=== PATIENT | female | born 1995 | race Caucasian/White ===

== ENCOUNTER 2021-04-08 05:44 | Inpatient (IN) ==
[2021-04-08] MEDS ORDERED: FAMOTIDINE 20 MG/2 ML VIAL IV PRN (05:53)
[2021-04-08] MEDS ORDERED: ceFAZolin 3,000 MG in SYRINGE 1 EACH IV PRN (05:53)
[2021-04-08] MEDS ORDERED: CITRIC ACID/SODIUM CITRATE 30 ML UDCUP PO PRN (05:53)
[2021-04-08] MEDS ORDERED: OXYTOCIN/LR 30 UNIT/1,000 ML BAG IV PRN (05:56)
[2021-04-08] MEDS ORDERED: OXYTOCIN 10 UNIT/ML VIAL IM PRN (05:57)
[2021-04-08] MEDS: LACTATED RINGERS 1,000 ML IV SCH ×2 (06:25→08:29)
[2021-04-08 06:38] LABS: Basophils # 0.1 10*3/uL (0.0-0.2); Basophils % 0.4 % (0.0-0.8); Eosinophils # 0.1 10*3/uL (0.0-0.87); Eosinophils % 1.1 % (0.00-10.9); Hematocrit 39.2 VOL% (35.7-47.0); Hemoglobin 12.8 GM/DL (12.0-16.0); Immature Granulocytes % 0.5 %; Immature Granulocytes Absolute 0.07 #; Lymphocytes # 1.9 10*3/uL (1.4-4.0); Lymphocytes % 14.3 % (21.3-54.2); Mean Corpuscular HGB Conc 32.7 GM/DL (32-36); Mean Corpuscular Volume 88.9 FL (87-102); Mean Platelet Volume 9.9 FL (9.6-12.0); Neutrophils % 78.7 % (38.7-73.9); Platelet Count 366 T/CUMM (130-400); Red Blood Count 4.41 MC/CUMM (3.8-5.5); Red Cell Distribution Width 13.9 % (9.3-17.3)
[2021-04-08 07:03] LABS: Alanine Aminotransferase 14 U/L (13-56); Albumin 2.5 G/DL (3.4-5.0); Alkaline Phosphatase 94 U/L (45-117); Aspartate Amino Transferase 12 U/L (0-37); Bilirubin,Total < 0.39 MG/DL (0.20-1.00); Blood Urea Nitrogen 6 MG/DL (7-18); Calcium 9.1 MG/DL (8.5-10.1); Carbon Dioxide 19 MMOL/L (21-32); Estimated Glom Filtration Rate 191 ML/MIN; Glucose 105 MG/DL (74-106); Osmolality,Calculated 274.5 MOS/KG (273-304); Potassium 3.7 MMOL/L (3.5-5.1); Sodium 139 MMOL/L (136-145); Total Protein 6.6 G/DL (6.4-8.2)
[2021-04-08] MEDS ORDERED: miSOPROStoL 200 MCG TABLET ONE (07:08)
[2021-04-08] MEDS ORDERED: METHYLERGONOVINE 0.2 MG/1 ML AMP ONE (07:08)
[2021-04-08] MEDS ORDERED: ONDANSETRON 4 MG/2 ML VIAL ONE (08:39)
[2021-04-08] MEDS ORDERED: BUPIVACAINE SPINAL 0.75% 2 ML AMP SPINAL ONE (08:39)
[2021-04-08] MEDS ORDERED: DEXAMETHASONE 4 MG/1 ML VIAL ONE (09:02)
[2021-04-08] MEDS ORDERED: KETOROLAC 30 MG/1 ML VIAL ONE (09:02)
[2021-04-08] MEDS ORDERED: ACETAMINOPHEN INJ 1,000 MG/100 ML VIAL IV ONE (09:02)
[2021-04-08] MEDS ORDERED: PHENYLEPHRINE 1 MG/10 ML SYRINGE IV ONE ×3 (09:02→09:48)
[2021-04-08] MEDS ORDERED: fentaNYL 100 MCG/2 ML VIAL ONE (09:23)
[2021-04-08 09:50] LABS: Cord Venous Blood HCO3 20.2 MMOL/L; Cord Venous Blood PCO2 62.3 MMHG; Cord Venous Blood PO2 < 17
[2021-04-08 09:53] LABS: Cord Arterial Blood HCO3 19.8 MMOL/L
[2021-04-08 10:08] LABS: Bilirubin,Urine Negative (Negative); Blood, Urine Negative (Negative); Glucose,Urine (UA) Negative (Negative); Ketones,Urine Negative (Negative); Mucus,Urine Moderate /LPF (Occasional); Nitrite,Urine Negative (Negative); Protein,Urine Negative; RBC,Urine 1 /HPF (0-4); Squamous Epithelial Cell,Urine Occasional /HPF (0-10); Urine Appearance CLEAR (Clear); Urine Color Yellow (Yellow); Urine Specific Gravity 1.025 (1.001-1.035); Urine Urobilinogen < 2.0 EU/DL (0.2-1.0)
[2021-04-08] MEDS ORDERED: OXYTOCIN/LR 20 UNIT/1,000 ML BAG IV ONE ×3 (11:38→11:39)
[2021-04-08] MEDS ORDERED: RHO(D) IMMUNE GLOBULIN 300 MCG SYRINGE IM ONE (11:39)
[2021-04-08] MEDS ORDERED: ACETAMINOPHEN 325 MG TABLET PO PRN (11:39)
[2021-04-08] MEDS ORDERED: SIMETHICONE CHEW 80 MG TABLET PO PRN (11:39)
[2021-04-08] MEDS ORDERED: IBUPROFEN 800 MG TABLET PO PRN (11:39)
[2021-04-08] MEDS ORDERED: ONDANSETRON 4 MG/2 ML VIAL IV PRN (11:39)
[2021-04-08] MEDS ORDERED: LACTATED RINGERS 1,000 ML IV SCH (12:00)
[2021-04-08] MEDS ORDERED: ACETAMINOPHEN 500 MG TABLET PO SCH (15:00)
[2021-04-08] MEDS ORDERED: KETOROLAC 30 MG/1 ML VIAL IV SCH (15:00)
[2021-04-08] MEDS: KETOROLAC 30 MG/1 ML VIAL IV SCH ×2 (16:03→21:17)
[2021-04-08] MEDS: ACETAMINOPHEN 500 MG TABLET PO SCH ×2 (16:04→21:10)
[2021-04-08] MEDS: ceFAZolin 2,000 MG/50 ML DUPLEX IV SCH (16:06)
[2021-04-08 17:28] LABS: Basophils % 0.2 % (0.0-0.8); Eosinophils % 0.1 % (0.00-10.9); Hematocrit 34.1 VOL% (35.7-47.0); Hemoglobin 11.3 GM/DL (12.0-16.0); Immature Granulocytes % 0.5 %; Immature Granulocytes Absolute 0.08 #; Lymphocytes % 6.1 % (21.3-54.2); Mean Corpuscular HGB Conc 33.1 GM/DL (32-36); Mean Platelet Volume 9.9 FL (9.6-12.0); Monocytes % 3.8 % (1.7-12.7); Neutrophils % 89.3 % (38.7-73.9); Platelet Count 323 T/CUMM (130-400); Red Blood Count 3.83 MC/CUMM (3.8-5.5); Red Cell Distribution Width 13.8 % (9.3-17.3); White Blood Count 16.9 T/CUMM (4-12)
[2021-04-08] MEDS: DOCUSATE SODIUM 100 MG CAPSULE PO SCH (21:09)
[2021-04-09] MEDS: ceFAZolin 2,000 MG/50 ML DUPLEX IV SCH (00:35)
[2021-04-09] MEDS: KETOROLAC 30 MG/1 ML VIAL IV SCH (03:51)
[2021-04-09] MEDS: ACETAMINOPHEN 500 MG TABLET PO SCH (06:00)
[2021-04-09 06:28] LABS: Basophils % 0.3 % (0.0-0.8); Eosinophils # 0.1 10*3/uL (0.0-0.87); Eosinophils % 0.9 % (0.00-10.9); Hematocrit 33.2 VOL% (35.7-47.0); Hemoglobin 10.5 GM/DL (12.0-16.0); Immature Granulocytes % 0.4 %; Immature Granulocytes Absolute 0.04 #; Lymphocytes % 19.7 % (21.3-54.2); Mean Corpuscular HGB Conc 31.6 GM/DL (32-36); Mean Corpuscular Volume 91.5 FL (87-102); Mean Platelet Volume 9.8 FL (9.6-12.0); Monocytes % 7.1 % (1.7-12.7); Neutrophils % 71.6 % (38.7-73.9); Platelet Count 284 T/CUMM (130-400); Red Blood Count 3.63 MC/CUMM (3.8-5.5); White Blood Count 10.1 T/CUMM (4-12)
[2021-04-09] MEDS: MAGNESIUM HYDROXIDE SUSP 30 ML UDCUP PO PRN ×2 (08:34→21:47)
[2021-04-09] MEDS: MULTIVITAMIN (PRENATAL) TABLET PO SCH (08:34)
[2021-04-09] MEDS: DOCUSATE SODIUM 100 MG CAPSULE PO SCH ×2 (08:34→21:48)
[2021-04-10] MEDS ORDERED: METOCLOPRAMIDE 10 MG TABLET PO SCH (07:30)
[2021-04-10] MEDS: DOCUSATE SODIUM 100 MG CAPSULE PO SCH (09:00)
[2021-04-10] MEDS: MULTIVITAMIN (PRENATAL) TABLET PO SCH (09:00)
[2021-04-10 13:34] VITALS: BP 146/77
== END 2021-04-10 14:40 | disposition home or self-care (01) | DRG 786 ==
LOC: N.LD 05:44 → N.OB 13:52
PROVIDERS: ADMIT Obstetrics & Gynecology; ATTEND Obstetrics & Gynecology
PROC: LDCSECT (ICD-10-PCS; 2021-04-08 08:30)